=== PATIENT | male | born 1975 | race Hispanic/Latino ===

== ENCOUNTER 2016-11-17 21:26 | Emergency (ER) | payer OTHER ==
[2016-11-17 22:00] VITALS: BMI 49.4
--- NOTE | 2016-11-17 22:12 | ED PDOC ---
Arrival/HPI - General Chief Complaint: High Blood Sugar Time Seen by Provider: 11/17/16 22:04 Historian: Patient - History of Present Illness Narrative History of Present Illness (Text): 11/17/16 22:09 Aubrey Hurley is a 41 year old male, whose past medical history includes diabetes, hypertension, hyperlipidemia, and asthma, who presents to the Emergency department complaining of hyperglycemia tonight. Patient states he took his blood sugar earlier tonight and states it was approximately 500. Patient notes he recently had a cortisone/lidocaine injection on 11/14/2016. Patient denies any fever, chills, chest pain, shortness of breath, nausea, vomiting, diarrhea, urinary symptoms, back pain, neck pain, headache, dizziness , or any other complaints. Symptom Onset: Gradual Symptom Course: Unchanged Activities at Onset: Rest, Light Context: Home Past Medical History - Provider Review Nursing Documentation Reviewed: Yes - Infectious Disease Hx of Infectious Diseases: None - Tetanus Immunization Tetanus Immunization: Unknown - Cardiac Hx Cardiac Disorders: Yes Hx Hypertension: Yes - Pulmonary Hx Respiratory Disorders: Yes Hx Asthma: Yes - Neurological Hx Neurological Disorder: No - HEENT Hx HEENT Disorder: No - Renal Hx Renal Disorder: No - Endocrine/Metabolic Hx Endocrine Disorders: Yes Hx Diabetes Mellitus Type 2: Yes - Hematological/Oncological Hx Blood Disorders: No - Integumentary Hx Dermatological Disorder: No - Musculoskeletal/Rheumatological Hx Musculoskeletal Disorders: No Hx Falls: No - Gastrointestinal Hx Gastrointestinal Disorders: Yes Other/Comment: h. pylori - Genitourinary/Gynecological Hx Genitourinary Disorders: No - Psychiatric Hx Psychophysiologic Disorder: Yes Hx Bipolar Disorder: Yes Hx Depression: Yes Hx Emotional Abuse: No Hx Physical Abuse: No Hx Substance Use: No Other/Comment: OCD - Surgical History Hx Gastric Bypass Surgery: Yes - Anesthesia Hx Anesthesia: No - Suicidal Assessment Feels Threatened In Home Enviroment: No Family/Social History - Physician Review Nursing Documentation Reviewed: Yes Family/Social History: No Known Family HX Smoking Status: Never Smoked Hx Alcohol Use: No Hx Substance Use: No Hx Substance Use Treatment: No Allergies/Home Meds Allergies/Adverse Reactions: Allergies No Known Allergies Allergy (Verified 11/17/16 22:00) Home Medications: Home Meds Medication Instructions Recorded Confirmed Aspirin [Aspir 81] 81 mg PO DAILY 08/16/12 11/17/16 Atorvastatin [Lipitor] 40 mg PO DAILY 08/16/12 11/17/16 Fexofenadine HCl [Kandis] 180 mg PO DAILY 08/16/12 11/17/16 Fluticasone/Salmeterol [Advair 1 puff IH BID 08/16/12 11/17/16 Diskus 250/50] Valsartan [Diovan] 80 mg PO DAILY 08/16/12 11/17/16 FLUoxetine [Prozac] 1 tab PO QAM 05/27/13 11/17/16 Fluoxetine Hydrochloride [Prozac] 1 tab PO QPM 05/27/13 11/17/16 Multivitamin2 [Daily 1 tab PO DAILY 05/27/13 11/17/16 Multi-Vitamins] Topiramate [Topamax] 10 mg PO TID 01/03/14 11/17/16 Review of Systems - Physician Review All systems were reviewed & negative as marked: Yes - Review of Systems Constitutional: Normal. absent: Fevers Eyes: Normal ENT: Normal Respiratory: absent: SOB Cardiovascular: Normal. absent: Chest Pain, Palpitations Gastrointestinal: Normal. absent: Abdominal Pain, Diarrhea, Nausea, Vomiting Genitourinary Male: Normal. absent: Dysuria, Frequency, Hematuria, Urinary Output Changes Musculoskeletal: Normal. absent: Back Pain, Neck Pain Skin: Normal. absent: Rash Neurological: Normal. absent: Headache, Dizziness Endocrine: Other (+hyperglycemia) Hemo/Lymphatic: Normal Psychiatric: Normal Physical Exam Vital Signs Reviewed: Yes Vital Signs Pulse Resp BP Pulse Ox 11/18/16 00:34 84 16 144/97 H 98 11/17/16 22:07 88 15 160/111 H 97 Temperature: Afebrile Blood Pressure: Hypertensive Pulse: Regular Respiratory Rate: Normal Appearance: Positive for: Well-Appearing, Non-Toxic, Comfortable Pain Distress: None Mental Status: Positive for: Alert and Oriented X 3 - Systems Exam Head: Present: Atraumatic, Normocephalic Pupils: Present: PERRL Extroacular Muscles: Present: EOMI Conjunctiva: Present: Normal Mouth: Present: Moist Mucous Membranes Neck: Present: Normal Range of Motion Respiratory/Chest: Present: Clear to Auscultation, Good Air Exchange. No: Respiratory Distress, Accessory Muscle Use Cardiovascular: Present: Regular Rate and Rhythm, Normal S1, S2. No: Murmurs Abdomen: Present: Normal Bowel Sounds. No: Tenderness, Distention, Peritoneal Signs Back: Present: Normal Inspection Upper Extremity: Present: Normal Inspection. No: Cyanosis, Edema Lower Extremity: Present: Normal Inspection. No: Edema Neurological: Present: GCS=15, CN II-XII Intact, Speech Normal Skin: Present: Warm, Dry, Normal Color. No: Rashes Psychiatric: Present: Alert, Oriented x 3, Normal Insight, Normal Concentration Medical Decision Making ED Course and Treatment: 11/17/16 22:09 Impression: 41 year old male complaining of hyperglycemia tonight. Differential Diagnosis include but are not limited to: hyperglycemia vs. diabetes Plan: -- EKG -- Labs, troponin -- IV fluids -- Reassess and disposition Prior Visits: Notes and results from previous visits were reviewed. Progress Notes: 11/17/16 23:01 Reviewed EKG, NSR at [address]-segment elevations or depressions, no T-wave inversions, normal intervals. 11/17/16 23:14 Reviewed labs, glucose: 355. Insulin ordered. 11/18/16 00:22 On re-evaluation, the patient feels better and is in no acute distress. I have discussed the results and plan with the patient, who expresses understanding. Patient in agreement with plan to discharged home. Patient is stable for discharge. Patient was instructed to follow up with physician/clinic in 1-2 days or return if symptoms worsen or new concerning symptoms arise. Re-evaluation Time: 00:22 Reassessment Condition: Re-examined, Improved - Lab Interpretations Lab Results: 11/17/16 22:25 11/17/16 22:25 Lab Results 11/18/16 00:20: POC Glucose (mg/dL) 308 H 11/17/16 22:25: WBC 7.9, RBC 4.93, Hgb 15.1, Hct 42.4, MCV 86.0, MCH 30.6, MCHC 35.6, RDW 12.6, Plt Count 253, MPV 9.8, Gran % 62.9, Lymph % (Auto) 26.9, Wayne % (Auto) 8.6 H, Eos % (Auto) 1.3 L, Baso % (Auto) 0.3, Gran # 4.95, Lymph # 2.1 , Wayne # 0.7 H, Eos # 0.1, Baso # 0.02, Sodium 135, Potassium 4.3, Chloride 100 , Carbon Dioxide 25, Anion Gap 14, BUN 16, Creatinine 1.0, Est GFR ( Amer ) > 60, Est GFR (Non-Af Amer) > 60, Random Glucose 355 H* D, Calcium 9.8, Total Bilirubin 0.6, AST 21, ALT 51, Alkaline Phosphatase 55, Troponin I < 0.01, Total Protein 7.0, Albumin 4.2, Globulin 2.8, Albumin/Globulin Ratio 1.5 I have reviewed the lab results: Yes - EKG Interpretation Interpreted by ED Physician: Yes Type: 12 lead EKG - Medication Orders Current Medication Orders: Discontinued Medications Sodium Chloride (Sodium Chloride 0.9%) 1,000 mls @ 80 mls/hr IV .[id number] Last Admin: 11/17/16 22:32 Dose: 80 MLS/HR eMAR Start Stop Document 11/17/16 22:32 EQ (Rec: 11/17/16 22:32 [facility] [id number] Intravenous Solution Start Date 11/17/16 Start Time 22:32 Insulin Human Regular (Humulin R) 2 units SC STAT STA Stop: 11/17/16 23:20 Last Admin: 11/17/16 23:35 Dose: 2 UNITS Subcutaneous Admin in ER Document 11/17/16 23:35 EQ (Rec: 11/17/16 23:36 EQ [facility] [id number] Injection Site MAR Injection Site Left Arm Subcutaneous Administrations Document 11/17/16 23:35 EQ (Rec: 11/17/16 23:36 EQ [facility] [id number] Charges for Administration # of Subcutaneous Administrations 1 - Scribe Statement The provider has reviewed the documentation as recorded by the Amena Rose Provider Attestation: All medical record entries made by the Amena were at my direction and personally dictated by me. I have reviewed the chart and agree that the record accurately reflects my personal performance of the history, physical exam, medical decision making, and the department course for this patient. I have also personally directed, reviewed, and agree with the discharge instructions and disposition. Disposition/Present on Arrival - Present on Arrival Any Indicators Present on Arrival: No History of DVT/PE: No History of Uncontrolled Diabetes: No Urinary Catheter: No History of Decub. Ulcer: No History Surgical Site Infection Following: None - Disposition Have Diagnosis and Disposition been Completed?: Yes Diagnosis: Diabetes mellitus Disposition: HOME/ ROUTINE Disposition Time: 00:23 Condition: GOOD Discharge Instructions (ExitCare): Diabetes Mellitus Type 2 in Adults (ED) Referrals: Gautam Alonso MD [Primary Care Provider] - Follow up with primary
[2016-11-17] MEDS ORDERED: Sodium Chloride 0.9% 1,000 ML IV SCH (22:15)
[2016-11-17 22:35] LABS: ADD MANUAL DIFF? NO
[2016-11-17 22:40] LABS: BASO # 0.02 K/mm3 (0.0-2.0); BASO % 0.3 % (0.0-3.0); EOS # 0.1 (0.0-0.7); EOS % 1.3 % (1.5-5.0); GRAN # 4.95 (1.4-6.5); GRAN % 62.9 % (50.0-68.0); HEMATOCRIT 42.4 % (42.0-52.0); LYMPH # 2.1 (1.2-3.4); LYMPH % 26.9 % (22.0-35.0); MEAN CORPUSCULAR HEMOGLOBIN 30.6 pg (25.0-35.0); MEAN CORPUSCULAR HGB CONC 35.6 g/dl (31.0-37.0); MEAN PLATELET VOLUME 9.8 fl (7.0-11.0); MONO # 0.7 (0.1-0.6); MONO % 8.6 % (1.0-6.0); PLATELET COUNT 253 10^3/uL (120.0-450.0); RED CELL DISTRIBUTION WIDTH 12.6 % (11.5-14.5); WHITE BLOOD COUNT 7.9 10^3/ul (4.5-11.0)
[2016-11-17 22:48] LABS: ALB/GLOB RATIO 1.5 (1.1-1.8); ALKALINE PHOSPHATASE 55 U/L (38-133); ALT/SGPT 51 U/L (7-56); AST/SGOT 21 U/L (15-59); BILIRUBIN,TOTAL 0.6 mg/dL (0.2-1.3); BLOOD UREA NITROGEN 16 mg/dL (7-21); CALCIUM 9.8 mg/dL (8.4-10.5); CARBON DIOXIDE 25 mmol/L (21-33); CHLORIDE 100 mmol/L (98-107); GFR AFRICAN-AMERICAN > 60; POTASSIUM 4.3 mmol/L (3.6-5.0); SODIUM 135 mmol/L (132-148)
[2016-11-17 23:02] LABS: TROPONIN I < 0.01 ng/mL
[2016-11-17 23:03] LABS: GLUCOSE,RANDOM 355 mg/dL (70-110)
[2016-11-17] MEDS ORDERED: Insulin Reg-LOW-Coverage SC STA (23:13)
[2016-11-17] MEDS ORDERED: Insulin Regular 1 UNITS/0.01 ML ML SC STA (23:19)
[2016-11-18 00:35] VITALS: BP 144/97; PULSE 84; RESP 16; O2SAT 98
--- NOTE | 2016-11-18 10:00 | CARD ---
APPROVED REPORT EKG Measurement Heart [id number] DC [id number] [id number] <Conclusion> Normal sinus rhythm Normal ECG No change
== END 2016-11-18 00:45 | disposition home or self-care (01) ==
LOC: ED 21:26
DX: E11.65 Type 2 diabetes mellitus with hyperglycemia (principal); I10 Essential (primary) hypertension; Z98.84 Bariatric surgery status
CPT/HCPCS: 80053; 82948; 84484; 85025; 93005; 96372; 99284; J7040